=== PATIENT | female | born 1980 | race Caucasian/White ===

== ENCOUNTER → 2017-07-27 | Outpatient (CLI) | payer OTHER ==
[~2017-07-27] MED LIST: HYDR-3583 PO
--- NOTE | 2017-07-31 09:46 | Diagnostic Imaging Report ---
Bilateral screening mammogram 2D views with tomosynthesis The current study was also evaluated with a Computer Aided Detection (CAD) system. Indication: Screening. No current complaints stated on the questionnaire. COMPARISON: 04/06/15. FINDINGS: The breasts are composed of heterogeneously dense parenchyma which decreased mammographic sensitivity. Allowing for technique and positional differences, no suspicious change is seen. IMPRESSION: Dense breasts with no definite change. ACR BI-RADS Category 2: Benign findings. Result letter will be mailed to the patient. Note: At least 10% of breast cancer is not imaged by mammography. Dictated by: Dictated on workstation # [id number]
== END ==
LOC: RAD 15:03
PROVIDERS: ATTEND Nurse Practitioner Adult Health
DX: Z12.31 Encounter for screening mammogram for malignant neoplasm of breast (principal); Z80.3 Family history of malignant neoplasm of breast
CPT/HCPCS: 77067

== ENCOUNTER 2018-06-04 05:37 | Outpatient (CLI) | payer BC ==
[~2018-06-04] VITALS: Ht 170.2 cm; Wt 75.3 kg
[2018-06-04] MEDS ORDERED: BCP PO (13:21)
[2018-06-07] MEDS ORDERED: IBUP-1773 PO (08:49)
[2018-06-07] MEDS ORDERED: ACHD5005 PO (08:49)
== END 2018-06-04 13:46 | disposition home or self-care (01) ==
LOC: PREOP 05:37
PROVIDERS: ATTEND Obstetrics & Gynecology
DX: Z01.818 Encounter for other preprocedural examination (principal)

== ENCOUNTER 2018-06-07 07:25 | Day surgery (SDC) | payer BC ==
[~2018-06-07] VITALS: Ht 170.2 cm; Wt 75.3 kg
[~2018-06-07 07:25] MED LIST changes: +BCP PO
[2018-06-07 07:45] VITALS: BP 94/65
[2018-06-07] MEDS ORDERED: ONDANSETRON 4 MG/2 ML (SDV) Z0FRAN ONE ×2 (07:52→08:09)
[2018-06-07] MEDS ORDERED: FAMOTIDINE 20MG/2ML IV (PEPCID) ONE (07:53)
[2018-06-07] MEDS ORDERED: LACTATED RINGERS 1,000 ML IV PRN (07:55)
[2018-06-07] MEDS ORDERED: FAMOTIDINE 20MG/2ML IV (PEPCID) IV ONE (08:00)
[2018-06-07] MEDS ORDERED: ONDANSETRON 4 MG/2 ML (SDV) Z0FRAN IV ONE (08:00)
[2018-06-07] MEDS ORDERED: DEXAMETHASONE 10 MG/ML (DECADRON) 1 ML VIAL ONE (08:09)
[2018-06-07] MEDS ORDERED: LIDOCAINE PF 2% 5 ML (XYLOCAINE) VIAL ONE (08:09)
[2018-06-07] MEDS ORDERED: MIDAZOLAM 2 MG/2 ML (VERSED) VIAL ONE (08:09)
[2018-06-07] MEDS ORDERED: fentaNYL INJECTION 100 MCG/2 ML AMP ONE (08:09)
[2018-06-07] MEDS ORDERED: proPOfol 200 MG/20 ML (DIPRIVAN) VIAL IV ONE (08:09)
[2018-06-07 08:13] LABS: BASOPHILS % (AUTO) 0 % (0-10); EOSINOPHILS # (AUTO) 0.2 10^3/uL (0.0-0.3); EOSINOPHILS % (AUTO) 3 % (0-10); HEMATOCRIT 42 % (35-52); HEMOGLOBIN 14.4 G/DL (11.5-16.0); LYMPHOCYTES # (AUTO) 2.6 X 10^3 (1.0-4.0); LYMPHOCYTES % (AUTO) 28 % (12-44); MEAN CORPUSCULAR HEMOGLOBIN 31 PG (25-34); MEAN CORPUSCULAR HGB CONC 34 G/DL (32-36); MEAN CORPUSCULAR VOLUME 91 FL (80-99); MEAN PLATELET VOLUME 10.1 FL (7.4-10.4); MONOCYTES # (AUTO) 0.6 X 10^3 (0.0-1.0); MONOCYTES % (AUTO) 6 % (0-12); NEUTROPHILS % (AUTO) 64 % (42-75); PLATELET COUNT 364 10^3/uL (130-400); RED BLOOD COUNT 4.63 10^6/uL (4.35-5.85); RED CELL DISTRIBUTION WIDTH 14.6 % (10.0-14.5); WHITE BLOOD COUNT 9.4 10^3/uL (4.3-11.0)
[2018-06-07] MEDS ORDERED: BUP/EPI 0.5% 1:200,000 (SENSORCAINE) 30 ML VIAL ONE (08:39)
--- NOTE | 2018-06-07 08:45 | Progress Note-Pre Operative ---
Pre-Operative Progress Note H&P Reviewed The H&P was reviewed, patient examined and no changes noted. Date Seen by Provider: Jun 07, 2018 Time Seen by Provider: 08:45 Date H&P Reviewed: Jun 07, 2018 Time H&P Reviewed: 08:40 Pre-Operative Diagnosis: JOE CIFUENTES DO Jun 07, 2018 8:45 am
[2018-06-07] MEDS ORDERED: D5 LR IV SOLUTION 1,000 ML IV SCH (08:46)
--- NOTE | 2018-06-07 08:48 | Discharge Inst-Women's Service ---
Discharge Inst-Women's Serv Depart Medication/Instructions New, Converted or Re-Newed RX: RX on Chart Consults/Follow Up Additional Follow Up: Yes Orders/Referrals Dr. Britton in 2-3 weeks Activity Activity: Activity as Tolerated Driving Instructions: You May Drive NO SMOKING: NO SMOKING Nothing Inside Vagina: No Douching, No [place], No Tampons Diet Discharge Diet: No Restrictions Symptoms to Report to : Bleeding Excessive, Pain Increased, Fever Over 101 Degrees F, Vaginal Bleeding Increase, Questions/Concerns For Any Problems or Questions: Contact Your Physician Skin/Wound Care Infection Signs and Symptoms: Increased Redness, Foul Odor of Wound, Increased Drainage, Skin Itchy or Has a Rash, Increased Swelling, Temperature Above 101 F Operative Area Clean and Dry: Keep Incision Clean/Dry Stitches/Lazaro/Dermabond: Dermabond, Care of Stitches Bathing Instructions: JOE Brunner DO Jun 07, 2018 8:48 am
[2018-06-07] MEDS ORDERED: IBUP-1773 PO (08:49)
[2018-06-07] MEDS ORDERED: ACHD5005 PO (08:49)
[2018-06-07] MEDS ORDERED: NEO/POLY/BAC (NEOSPORIN) OINT 15 GM TUBE ONE (08:58)
[2018-06-07] MEDS ORDERED: KETOROLAC 30 MG/ML VIAL IVP ONE (09:00)
[2018-06-07] MEDS ORDERED: ONDANSETRON 4 MG/2 ML (SDV) Z0FRAN IVP PRN (09:00)
[2018-06-07] MEDS ORDERED: HYDROcodone/APAP 5 MG/325 MG (LORTAB) TAB PO PRN (09:00)
[2018-06-07] MEDS ORDERED: KETOROLAC 30 MG/ML VIAL ONE (09:14)
--- NOTE | 2018-06-07 10:04 | Anesthesia-General Post-Op ---
General Patient Condition Mental Status/LOC: Same as Preop Cardiovascular: Satisfactory Nausea/Vomiting: Absent Respiratory: Satisfactory Pain: Controlled Complications: Absent Post Op Complications Complications None Follow Up Care/Instructions Patient Instructions None needed. Anesthesia/Patient Condition Patient Condition Patient is doing well, no complaints, stable vital signs, no apparent adverse anesthesia problems. No complications reported per nursing. D/C home per [facility] [place] Criteria: No ANUSHA HAMM CRNA Jun 07, 2018 10:03
[2018-06-07 10:20] VITALS: BP 103/73
[2018-06-07 10:50] VITALS: BP 106/66
[2018-06-07 11:20] VITALS: BP 91/61
[2018-06-07 11:40] VITALS: BP 91/61
--- NOTE | 2018-06-07 13:29 | OPERATIVE REPORT ---
DATE OF SERVICE: 06/07/2018 PREOPERATIVE DIAGNOSIS: A 38-year-old female with vaginal intra-epithelial neoplasia 2. POSTOPERATIVE DIAGNOSIS: A 38-year-old female with vaginal intra-epithelial neoplasia 2. PROCEDURE: Wide local excision of right vulvar lesion. SURGEON: José Antonio Britton DO ANESTHESIA: General endotracheal. ESTIMATED BLOOD LOSS: Minimal. FLUIDS: Was 500 mL lactated Ringer's solution. SPECIMEN SENT: Wide local excision of right vulvar lesion. INDICATION FOR PROCEDURE: This 38-year-old female with a consultation to me from the [facility] for finding of VAIN 2 on a biopsied vulvar lesion. The lesion was quite large at the time of my evaluation approximately 2 x 3 cm. The patient reports trying creams and several other home remedies prior to going to the clinic and having it biopsied. I discussed with her chemotherapy, topical caustic agents to try and attempt for the tissue to be removed, but also I discussed with the patient wide local excision of the area. This sounded more favorable to the patient. Risks of the procedure were discussed with the patient in detail. After all of her questions were answered, consent was obtained. The patient was taken to the operating room. OPERATIVE REPORT IN DETAIL: Once in the operating room, anesthesia was found to be adequate. She was placed in dorsal lithotomy position, prepped and draped in normal sterile fashion. Timeout was performed. The area around the margin of the lesion, which is on the right labia majora extending to the posterior fourchette and up to approximately 9 o'clock wide of the right labia is marked using a marking pen approximately 3 to 4 mm wide of the widest area of demarcation and color change. I then make an elliptical incision around this margin line using a knife and elevate the skin from this and dissected off the underlying tissue taken full thickness. This was done after I infiltrated the entire margin of the lesion using 0.25% Marcaine with epinephrine. There is very small amount of bleeding noted after the excision is performed. I cauterized the bleeding areas using Bovie cautery and then reapproximated the skin using 3-0 Vicryl in interrupted fashion. There was no active bleeding noted from any of my dissection planes after I am done reapproximating the tissue. Triple antibiotic ointment was then applied to the incision. The patient tolerated the procedure well and was taken to recovery area in stable condition. Lap and sponge counts were correct at the end of the procedure and instrument counts were correct as well. Job ID: [id number] DocumentID: [id number] Dictated Date: 06/07/2018 09:50:13 Manager Environmental Health And Safety Date: 06/07/2018 13:28:49 Dictated By: DO RUPESH RICE
== END 2018-06-07 11:40 | disposition home or self-care (01) ==
LOC: SDC 07:25
PROVIDERS: ATTEND Obstetrics & Gynecology
DX: N90.0 Mild vulvar dysplasia (principal); F17.210 Nicotine dependence, cigarettes, uncomplicated
CPT/HCPCS: 36415; 84703; 85025; 86850; 86900; 86901; 87081; 94664

== ENCOUNTER → 2019-11-15 | Outpatient (CLI) | payer BC ==
[~2019-11-15] MED LIST changes: +ACHD5005 PO; +IBUP-1773 PO
== END ==
LOC: LAB 09:32
PROVIDERS: ATTEND Obstetrics & Gynecology
DX: O20.0 Threatened abortion (principal); Z3A.00 Weeks of gestation of pregnancy not specified
CPT/HCPCS: 36415; 84702

== ENCOUNTER → 2019-12-01 | Outpatient (CLI) | payer BC ==
--- NOTE | 2019-12-01 16:30 | Diagnostic Imaging Report ---
INDICATION: Palpable lump in the left breast. TECHNIQUE/FINDINGS: Sonographic interrogation of the area of palpable abnormality in the left breast was performed. This corresponds to the 2 o'clock location. There is a simple cyst at this location 2 cm from the nipple measuring 3.8 x 1.3 x 3.5 cm. No internal vascularity is seen. No solid mass is detected. IMPRESSION: A simple cyst at the 2 o'clock location of the left breast 2 cm from the nipple corresponds to the palpable abnormality. ACR BI-RADS Category 2: Benign findings. Dictated by: Dictated on workstation # [id number]
== END ==
LOC: RAD 13:57
PROVIDERS: ATTEND Obstetrics & Gynecology
DX: N60.02 Solitary cyst of left breast (principal)
CPT/HCPCS: 76641

== ENCOUNTER → 2020-06-22 | Outpatient (CLI) | payer BC ==
--- NOTE | 2020-06-22 12:33 | Diagnostic Imaging Report ---
INDICATION: Routine screening. COMPARISON: 07/27/2017 and 09/17/2014. TECHNIQUE: 2D and 3D bilateral screening mammography was performed with CAD. FINDINGS: Both breasts remain heterogeneously dense, limiting the sensitivity of mammography. There is a large circumscribed mass in the retroareolar left breast, new since the prior mammogram. This may account for the large cyst noted on the ultrasound from November. The right breast is unremarkable. No suspicious microcalcifications are seen. The axillae are unremarkable. IMPRESSION: There is a large circumscribed mass in the retroareolar left breast. This most likely represents a large cyst. Further evaluation with ultrasound is recommended. ACR BI-RADS Category 0: Incomplete. (Needs additional imaging evaluation). Result letter will be mailed to the patient. Note: At least 10% of breast cancer is not imaged by mammography. Dictated by: Dictated on workstation # [id number]
== END ==
LOC: RAD 06:56
PROVIDERS: ATTEND Obstetrics & Gynecology
DX: Z12.31 Encounter for screening mammogram for malignant neoplasm of breast (principal); N63.20 Unspecified lump in the left breast, unspecified quadrant
CPT/HCPCS: 77063; 77067

== ENCOUNTER → 2020-07-02 | Outpatient (CLI) | payer BC ==
--- NOTE | 2020-07-02 12:55 | Diagnostic Imaging Report ---
INDICATION: Left breast cyst. Patient presents for recheck. Correlation is made with prior left breast ultrasound from 12/01/2019. Sonographic interrogation of the 2:00 location left breast, 2 cm from the nipple was performed. Previously noted cyst at this location has increased in size, now measuring 4.2 x 1.2 x 4.5 cm. This compares with 3.9 x 1.3 x 3.5 cm on prior exam. This continues to appear simple. No internal vascularity seen. IMPRESSION: BI-RADS Category 2 Slight enlargement of simple appearing cysts 2:00 location left breast when compared with examination from 12/01/2019. ACR BI-RADS Category 2: Benign findings. Result letter will be mailed to the patient. Note: At least 10% of breast cancer is not imaged by mammography. Dictated by: Dictated on workstation # [id number]
== END ==
LOC: RAD 09:15
PROVIDERS: ATTEND Obstetrics & Gynecology
DX: N60.02 Solitary cyst of left breast (principal); R92.8 Other abnormal and inconclusive findings on diagnostic imaging of breast
CPT/HCPCS: 76642

== ENCOUNTER → 2021-08-10 | Outpatient (CLI) | payer BC ==
[~2021-08-10] MED LIST changes: +LIDOCAINE 1% INJ 20 ML 20 ML VIAL INJ ONE; +LIDOCAINE 1% INJ 20 ML 20 ML VIAL ONE
--- NOTE | 2021-08-10 13:48 | Diagnostic Imaging Report ---
INDICATION: Palpable lump in the left breast. COMPARISON: 06/22/2020 and 07/27/2017. TECHNIQUE: 2D and 3D bilateral diagnostic mammography was performed with CAD. FINDINGS: A BB marker was placed at the area of palpable abnormality in the upper and outer retroareolar left breast. Both breasts remain heterogeneously dense, limiting the sensitivity of mammography. The large circumscribed mass in the retroareolar and slightly outer left breast is again noted and has been previously shown to represent a large cyst. This appears to be slightly larger on today's study. No other masses are seen. No malignant-appearing microcalcifications are identified. The axillae are unremarkable. IMPRESSION: Enlarging circumscribed density in the retroareolar and outer left breast, likely accounting for the palpable abnormality. This is likely an enlarging cyst. Further evaluation with ultrasound is recommended and will be performed today. ACR BI-RADS Category 0: Incomplete. (Needs additional imaging evaluation). Result letter will be mailed to the patient. Note: At least 10% of breast cancer is not imaged by mammography. Dictated by: Dictated on workstation # [id number]
--- NOTE | 2021-08-10 14:25 | Diagnostic Imaging Report ---
INDICATION: Left breast palpable mass. COMPARISON: Correlation is made to the diagnostic mammogram from earlier this same day. FINDINGS: Sonographic interrogation of the area of palpable abnormality in the upper outer left breast was performed. There is a simple cyst at the 2 o'clock location measuring 4.9 x 1.4 x 5.5 cm. This is measuring slightly larger when compared with the ultrasound from 07/02/2020. No internal vascularity is present. No other abnormalities are identified. IMPRESSION: Enlarging cyst at the 2 o'clock location of the left breast 1 to 2 cm from the nipple. This would be amenable to ultrasound-guided aspiration if needed. ACR BI-RADS Category 2: Benign findings. Dictated by: Dictated on workstation # [id number]
--- NOTE | 2021-08-10 14:27 | Diagnostic Imaging Report ---
INDICATION: Left breast cyst. Patient presents for ultrasound-guided aspiration. DETAILS OF THE PROCEDURE: The left breast was prepped and draped in the usual sterile fashion. A small amount of 1% lidocaine was utilized for local anesthesia. An 18-gauge needle was advanced into the simple cyst at the 2 o'clock location in the left breast 2 cm from the nipple. A total of 23 mL of fluid was aspirated. The fluid was slightly brown-tinged. There was near complete collapse of the cyst with only a small amount of residual fluid remaining. The needle was withdrawn and hemostasis was obtained. The patient tolerated the procedure well and left the Department in stable condition. IMPRESSION: Successful ultrasound-guided aspiration of a left breast cyst obtaining 23 mL of fluid. Dictated by: Dictated on workstation # [id number]
== END ==
LOC: RAD 12:45
PROVIDERS: ATTEND Obstetrics & Gynecology
DX: N60.02 Solitary cyst of left breast (principal)
CPT/HCPCS: 76642; 76942; 77066; G0279; 77062

== ENCOUNTER → 2022-12-29 | Outpatient (CLI) | payer BC ==
[~2022-12-29] MED LIST changes: -LIDOCAINE 1% INJ 20 ML 20 ML VIAL INJ ONE; -LIDOCAINE 1% INJ 20 ML 20 ML VIAL ONE
--- NOTE | 2022-12-29 17:28 | Diagnostic Imaging Report ---
PROCEDURE: US Non-ob pelvis comp/trans. TECHNIQUE: Multiple realtime grayscale images were obtained of the pelvis in various projections endovaginally. Transabdominal imaging was also performed. INDICATION: Uterine leiomyoma. COMPARISON: None available. FINDINGS: The uterus is retroverted and measures 7.8 x 5.2 x 5.6 cm. At the level of the fundus, there is a 3.1 x 3.5 x 3.9 cm solid mass that appears partially exophytic and is likely a pedunculated subserosal fibroid. The endometrium measures 0.4 cm in thickness. Right ovary measures 2.8 x 1.5 x 2.6 cm. The left ovary measures 3.9 x 1.6 x 1.8 cm. Blood flow seen in both ovaries by color Doppler imaging. Trace simple free pelvic fluid is likely physiologic. IMPRESSION: Large partially exophytic fibroid at the uterine fundus does not exert mass effect on the endometrium. Dictated by: Dictated on workstation # [id number]
== END ==
LOC: RAD 13:33
PROVIDERS: ATTEND Nurse Practitioner Women's Health
DX: D25.9 Leiomyoma of uterus, unspecified (principal)
CPT/HCPCS: 76830; 76856

== ENCOUNTER 2023-06-12 05:33 | Outpatient (CLI) | payer BC ==
[~2023-06-12] VITALS: Ht 170 cm; Wt 82.3 kg
== END 2023-06-12 14:25 | disposition home or self-care (01) ==
LOC: PREOP 05:33
PROVIDERS: ATTEND Obstetrics & Gynecology
DX: Z01.818 Encounter for other preprocedural examination (principal)

== ENCOUNTER 2023-06-19 07:27 | Day surgery (SDC) | payer BC ==
[~2023-06-19] VITALS: Ht 170 cm; Wt 82.3 kg
[2023-06-19] VITALS (10 sets, daily range): BP systolic 99–126; BP diastolic 36–73
[2023-06-19] MEDS ORDERED: FAMOTIDINE INJ 20MG/2ML VIAL IVP ONE (07:45)
[2023-06-19] MEDS ORDERED: ONDANSETRON 4 MG/2 ML (SDV) Z0FRAN IVP ONE (07:45)
[2023-06-19] MEDS ORDERED: metroNIDAZOLE 500MG/100ML IVPB 100 ML IV ONE (07:45)
[2023-06-19] MEDS ORDERED: ceFAZolin INJECTION 2,000 MG in NS (IVPB) 50 ML 50 ML IV ONE (07:45)
[2023-06-19] MEDS: LACTATED RINGERS 1,000 ML IV PRN ×2 (08:05→08:46)
[2023-06-19 08:15] LABS: BASOPHILS % (AUTO) 1 % (0-10); EOSINOPHILS # (AUTO) 0.2 10^3/uL (0.0-0.3); EOSINOPHILS % (AUTO) 2 % (0-10); HEMATOCRIT 42 % (35-52); HEMOGLOBIN 13.8 g/dL (11.5-16.0); LYMPHOCYTES # (AUTO) 2.6 10^3/uL (1.0-4.0); LYMPHOCYTES % (AUTO) 30 % (12-44); MEAN CORPUSCULAR HEMOGLOBIN 30 pg (25-34); MEAN CORPUSCULAR HGB CONC 33 g/dL (32-36); MEAN CORPUSCULAR VOLUME 92 fL (80-99); MEAN PLATELET VOLUME 9.5 fL (9.0-12.2); MONOCYTES # (AUTO) 0.6 10^3/uL (0.0-1.0); MONOCYTES % (AUTO) 8 % (0-12); NEUTROPHILS # (AUTO) 4.9 10^3/uL (1.8-7.8); NEUTROPHILS % (AUTO) 59 % (42-75); PLATELET COUNT 324 10^3/uL (130-400); WHITE BLOOD COUNT 8.4 10^3/uL (4.3-11.0)
--- NOTE | 2023-06-19 08:52 | Progress Note-Pre Operative ---
Pre-Operative Progress Note Date of Available H&P: Jun 19, 2023 Date H&P Reviewed: Jun 19, 2023 Time H&P Reviewed: 08:45 History & Physical: H&P Reviewed, Patient Examed, No changes noted Pre-Operative Diagnosis: AUB-L, Fibroid uterus, Tobacco use JOE VALLEJO DO Jun 19, 2023 08:51
--- NOTE | 2023-06-19 08:53 | Discharge Inst-Women's Service ---
Discharge Inst-Women's Serv Depart Medication/Instructions New, Converted or Re-Newed RX: Transmitted to Pharmacy Problems Reviewed?: Yes Consults/Follow Up Additional Follow Up: Yes Orders/Referrals Dr. Britton in 7-10 days and in 8 weeks Activity Activity: Activity as Tolerated Driving Instructions: No Driving for 1 Week NO SMOKING: NO SMOKING Nothing Inside Vagina: No Douching, No [place], No Tampons Diet Discharge Diet: No Restrictions Symptoms to Report to : Bleeding Excessive, Pain Increased, Fever Over 101 Degrees F, Vaginal Bleeding Increase, Questions/Concerns For Any Problems or Questions: Contact Your Physician Skin/Wound Care Infection Signs and Symptoms: Increased Redness, Foul Odor of Wound, Increased Drainage, Skin Itchy or Has a Rash, Increased Swelling, Temperature Above 101 F Operative Area Clean and Dry: Keep Incision Clean/Dry Stitches/Lazaro/Dermabond: Dermabond, Care of Stitches Bathing Instructions: JOE Brunner DO Jun 19, 2023 08:52
[2023-06-19] MEDS ORDERED: BENZOCAINE LOZENGES 1 EACH MM PRN (09:00)
[2023-06-19] MEDS ORDERED: DOCUSATE SODIUM 100 MG CAPSULE PO PRN (09:00)
[2023-06-19] MEDS ORDERED: ONDANSETRON 4 MG/2 ML (SDV) Z0FRAN IV PRN (09:00)
[2023-06-19] MEDS ORDERED: LACTATED RINGERS 1,000 ML IV SCH (09:00)
[2023-06-19] MEDS ORDERED: SIMETHICONE 80 MG (MYLICON) CHEW PO PRN (09:00)
[2023-06-19] MEDS ORDERED: HYDROmorphone INJECTION 2 MG/ML VIAL IVP PRN (09:00)
[2023-06-19] MEDS ORDERED: IBUPROFEN 600 MG TABLET PO PRN (09:00)
[2023-06-19] MEDS ORDERED: ANTACID SUSPENSION 30 ML UDC PO PRN (09:00)
[2023-06-19] MEDS ORDERED: ZOLPIDEM 5 MG (AMBIEN) TAB PO PRN (09:00)
[2023-06-19] MEDS ORDERED: HYDROcodone/ACETAMINOPHEN 7.5 MG/325 MG TABLET PO PRN (09:00)
[2023-06-19] MEDS ORDERED: KETOROLAC INJ 30 MG/ML VIAL IVP PRN (09:00)
[2023-06-19] MEDS ORDERED: HYDR-34 PO (09:07)
[2023-06-19] MEDS ORDERED: IBUP-844 PO (09:07)
[2023-06-19] MEDS ORDERED: SIME80TA16 PO (09:07)
[2023-06-19] MEDS ORDERED: DOCU100C37 PO (09:07)
[2023-06-19] MEDS ORDERED: BUPIVACAINE 0.25% 30 ML VIAL ONE (09:19)
[2023-06-19] MEDS ORDERED: fentaNYL INJECTION 100 MCG/2 ML VIAL ONE (09:38)
[2023-06-19] MEDS ORDERED: MIDAZOLAM INJ 2 MG/2 ML VIAL ONE (09:38)
[2023-06-19] MEDS ORDERED: BUPIVACAINE 0.25% 30 ML VIAL INJ ONE (10:10)
[2023-06-19] MEDS ORDERED: LIDOCAINE PF 2% 5 ML VIAL ONE (10:46)
[2023-06-19] MEDS ORDERED: ROCURONIUM 50 MG/5 ML (ZEMURON) VIAL IV ONE (10:46)
[2023-06-19] MEDS ORDERED: proPOfol 200 MG/20 ML (DIPRIVAN) VIAL IV ONE (10:46)
[2023-06-19] MEDS ORDERED: ONDANSETRON 4 MG/2 ML (SDV) Z0FRAN ONE (10:47)
[2023-06-19] MEDS ORDERED: GLYCOPYRROLATE INJ 0.2 MG/ML 2 ML VIAL ONE (10:47)
[2023-06-19] MEDS ORDERED: dexAMETHasone INJ 10 MG/ML 1 ML VIAL ONE (10:47)
[2023-06-19] MEDS ORDERED: NEOSTIGMINE (BLOXIVERZ ) 1 MG/1ML 10 ML VIAL ONE (10:47)
[2023-06-19] MEDS ORDERED: KETOROLAC INJ 30 MG/ML VIAL ONE (10:47)
[2023-06-19] MEDS ORDERED: morphine INJ 10 MG/ML 1ML (SYR OR VIAL) IVP ONE (11:30)
[2023-06-19] MEDS ORDERED: PROMETHAZINE INJ 25 MG/ML (PHENERGAN) AMP IVP ONE (11:30)
[2023-06-19] MEDS ORDERED: HYDROmorphone INJECTION 2 MG/ML VIAL IV ONE (11:30)
--- NOTE | 2023-06-19 20:00 | OPERATIVE REPORT ---
DATE OF SERVICE: 06/19/2023 PREOPERATIVE DIAGNOSES: 1. A 43-year-old female with fibroid uterus. 2. Abnormal uterine bleeding. 3. Dysmenorrhea. POSTOPERATIVE DIAGNOSES: 1. A 43-year-old female with fibroid uterus. 2. Abnormal uterine bleeding. 3. Dysmenorrhea. PROCEDURE: Robotic-assisted total laparoscopic hysterectomy. SURGEON: José Antonio Vallejo DO BILINGUAL NANNY: Luba Cho DNP, was necessary for manipulation and retraction throughout the procedure. ANESTHESIA: General endotracheal. ESTIMATED BLOOD LOSS: Minimal. URINE OUTPUT: 100 mL clear at the end of procedure. FLUIDS: 1500 mL lactated Ringer's solution. FINDINGS: Bulky hyperemic appearing uterus with enlarged, probably 3-4 cm in diameter subserosal fibroid that was somewhat pedunculated at the left fundus. Grossly normal appearing bilateral ovaries and upper abdominal anatomy. SPECIMEN SENT: Uterus. INDICATIONS FOR PROCEDURE: This 43-year-old female is the patient who had sought care in my office for years. She had become exhausted with other options for treating her heavy painful periods and she wished to proceed with more definitive measures. She had a known history of fibroids and had a smoking history as well, which indicated any conservative measures involving hormones given her age. She desired proceeding with definitive management for this as well as sterilization in the form of hysterectomy. Risks of procedure discussed with the patient in detail and after all of her questions were answered, she was agreeable to proceed. Consent was obtained. The patient was taken to the operating room. OPERATIVE REPORT IN DETAIL: The patient was brought to the operating room. Anesthesia was found to be adequate. She was placed in dorsal lithotomy position, prepped and draped in normal sterile fashion. Timeout was performed. A weighted speculum inserted to the patient's vagina after Shepard catheter was placed using sterile technique. A right angle retractor was utilized. Cervix was grasped at 12 o'clock position using 0 Vicryl suture to the anterior lip of the cervix. I then gently sound the uterine cavity, depth was found to be 8 cm. I selected an 8 cm GUILLERMO uterine manipulator tip and a 3.5 cm colpotomy ring. The manipulator tip was advanced into the uterus and the balloon was deployed and the colpotomy ring was advanced around the vaginal fornix, after which there is excellent manipulation noted after the GUILLERMO is secured onto the cervix and uterus. I then removed all the instruments from the patient's vagina, performed change of gloves. I turned my attention to the abdomen where subcostally at the midclavicular line, I introduced the Veress needle through the skin until intraperitoneal placement was confirmed using saline drop test. An opening pressure of 3 mmHg was noted. I proceeded with insufflation using CO2 gas to maximum pressure of 15 mmHg, at which point I make an 8 mm infraumbilical incision with a knife and direct a blunt da Taiwo laparoscopic trocar through the incision until intraperitoneal placement was confirmed using the laparoscope. There was no evidence of damage from my entry site. A brief scan of the upper abdominal anatomy appears to have no damage upon the Veress entry site and the Veress was removed at that point, under direct visualization of laparoscope. I then had the patient placed in steep Trendelenburg where I am able to visualize all my pelvic anatomy as defined in my findings above. I placed two lateral trocars, these were both 8 mm trocars. They were both placed approximately 8 cm lateral to my infraumbilical trocar. Once these were both in place under direct visualization of laparoscope, I bring the da Taiwo robot and docked in appropriate fashion with a SynchroSeal in the left hand and monopolar chase in the right hand, I performed the following dissection at the da Taiwo operative console. Starting at the uteroovarian ligament, I sealed and transected this using the SynchroSeal device. I then grasped the round ligament, which I sealed and transected using a SynchroSeal device. I then take this down to the broad ligament using a SynchroSeal device. This dissection was taken all the way down to the lower uterine segment where I the anterior and posterior leaflets of the broad ligament. Anterior leaflet was taken around the anterior vaginal fornix. The posterior leaf was taken around the posterior vaginal fornix. This allows me to skeletonize the uterine vessels laterally, which I sealed and transected using a SynchroSeal device. I then created a colpotomy at 12 o'clock position using monopolar chase and taken circumferentially around the vaginal fornix amputating the cervix away from the vagina after which there was no active bleeding noted from the vaginal cuff. The entire specimen was removed through the vagina. I then closed the vaginal cuff using 2-0 V-Loc in a running fashion, after which, again, there was no active bleeding noted from any of my dissection planes. I then undocked the da Taiwo robot and proceeded with remainder of case laparoscopically. I copiously irrigated the pelvis using normal saline. Once again, there was no active bleeding noted from any of my dissection planes. I placed Surgiflo hemostatic agent over all my planes of dissection. I then have the patient taken out of steep Trendelenburg where I removed the lateral trocars under direct visualization of laparoscope. The infraumbilical trocars left in place to release the remainder of insufflation and to introduce 10 mL of 0.25% Marcaine in the peritoneal cavity for postoperative pain management. I then removed this trocar as well. The skin reapproximated using 4-0 Monocryl and interrupted subcuticular stitches. Dermabond was applied to the incisions and Band-Aids were placed over the incisions as well. Shepard catheter was left in place. The patient tolerated the procedure well and sent to recovery area in stable condition. Lap and sponge counts were correct at the end of the procedure. Instrument counts correct as well. Two grams of Ancef and 500 mg of Flagyl were given preoperatively for infection prophylaxis. Job ID: [id number] DocumentID: [id number] Dictated Date: 06/19/2023 12:41:12 Tool Trouble Shooter Date: 06/19/2023 19:58:00 Dictated By: JOSÉ ANTONIO VALLEJO DO
--- NOTE | 2023-06-20 14:17 | Anesthesia-General Post-Op ---
General Patient Condition Mental Status/LOC: Same as Preop Cardiovascular: Satisfactory Nausea/Vomiting: Absent Respiratory: Satisfactory Pain: Controlled Complications: Absent Post Op Complications Complications None Follow Up Care/Instructions Patient Instructions None needed. Anesthesia/Patient Condition Patient Condition Patient is already discharged to home but she was doing well, no complaints, stable vital signs, no apparent adverse anesthesia problems per nursing staff prior to her discharge to home. No complications reported per nursing. EDUIN DANIELS DO Jun 20, 2023 14:17
== END 2023-06-19 18:23 | disposition home or self-care (01) ==
LOC: SDC 07:27 → WS 12:05 → SDC 18:23
PROVIDERS: ATTEND Obstetrics & Gynecology
DX: D25.9 Leiomyoma of uterus, unspecified (principal); N80.03 Adenomyosis of the uterus; N93.9 Abnormal uterine and vaginal bleeding, unspecified; N94.6 Dysmenorrhea, unspecified; F17.210 Nicotine dependence, cigarettes, uncomplicated
CPT/HCPCS: 36415; 84703; 85025; 86850; 86900; 86901; 87081; 88307; 94664